=== PATIENT | male | born 1960 | race African-American/Black ===

== ENCOUNTER 2017-09-22 11:10 | Inpatient (IN) | payer OTHER ==
[~2017-09-22] VITALS: Ht 185.4 cm; Wt 98.9 kg
--- NOTE | ~2017-09-22 | EKG ---
[address] [place] [address] ELECTROCARDIOGRAM REPORT Name: AXEL NEVILLE Room #: 358-P ADM IN M.R.#: [id number] Admission: 09/22/17 Attend Phys: Tristen Santos MD Discharge: Date of : 58 Report #: [id number] THIS REPORT FOR: //name// [facility] ED Test Date: 2017-09-22 Test Time: 11:33:30 Pat Name: AXEL NEVILLE Department: Room: 358 Gender: M Web Mobile Designer: KEN : 1960 Requested By: Juan Miguel Parks Order Number: [id number] MD: Rao Berkowitz Measurements Intervals [place] Rate: 122 P: [place]: QRS: 24 QRSD: 92 T: 48 QT: 328 QTc: 468 Interpretive Statements Sinus tachycardia Otherwise no significant abnormality No previous ECG available for comparison Electronically Signed On 09-22-2017 16:02:58 MANAGER OF DIGITAL by Rao Berkowitz [email or web address] <ELECTRONICALLY SIGNED> By: Rao Berkowitz MD, [facility] 09/22/17 1602 1133 1133 Rao Berkowitz MD, FACC /EPI
--- NOTE | ~2017-09-22 | EXE ---
[facility] [address] [place] [address] STRESS ECHOCARDIOGRAM Name: AXEL NEVILLE Room #: 358-P [facility] IN ..#: [id number] Admission: 09/22/17 Attend Phys: Tristen Santos MD Discharge: Date of : 58 Date of Service: 09/23/17 1108 Report #: [id number] THIS REPORT FOR: //name// APPROVED REPORT Exam: Stress Echocardiogram Indication: HTN, MILLS, elevated troponin Patient Location: Echo lab Stress Nurse: Carlie Casey RN Room #: 358 Status: routine Ht: 6 ft 0 in HR: 112 bpm BP: 151/90 mmHg Rhythm: NSR Medical History Allergies: No known drug allergies Procedure The patient underwent an Exercise Stress Test using the Alf Protocol. Blood pressure, heart rate, and EKG were monitored. An Echocardiogram was performed by hazardous waste technician in four stages in quad fashion. At peak stress, four selected images were obtained and placed side by side with resting images for comparison. Stress Test Details Stress Test: Exercise stress testing was performed using a Alf protocol. HR Resting HR: 112 bpm Max Heart Rate (APMHR): 162 bpm Max HR Achieved: 155 bpm Target HR (85% APMHR): 137 bpm % of APMHR: 95 Recovery HR: 115 bpm HR response to stress: Tachycardic at rest/Normal HR response to stress BP Resting BP: 151/90 mmHg Max BP: 220/110 mmHg Recovery BP: 186/90 mmHg ECG [facility] [address] [place] [address] STRESS ECHOCARDIOGRAM Name: AXEL NEVILLE Room #: 358-P [facility] IN .R.#: [id number] Admission: 09/22/17 Attend Phys: Tristen Santso MD Discharge: Date of : 58 Date of Service: 09/23/17 1108 Report #: [id number] Clinical Reason for Termination: Fatigue Exercise duration: 5 min 17 sec Highest Stage Achieved: Stage 2: 2.5 mph at 12% grade. Exercise capacity: 7.20 METs Patient had difficulty walking treadmill due to leg arthritis. Pre-Stress Echo The resting Echocardiogram showed low normal left ventricular contractility with an estimated Ejection Fraction of about 50%. Left ventricular hypertrophy noted. No significant valvular abnormalities noted. Post-Stress Echo The stress Echocardiogram showed normal left ventricular contractility with an estimated Ejection Fraction of about 60%. Conclusion Clinical Response: Non-ischemic Exercise Capacity: Average Stress ECG Response: Non-ischemic Stress Echo Images: Non-ischemic <ELECTRONICALLY SIGNED> By: Keith Rangel MD, FACC 09/23/17 1108 1108 1108 Keith Rangel MD, FACC /INF
--- NOTE | ~2017-09-22 | EKG ---
[address] [address] ELECTROCARDIOGRAM REPORT Name: AXEL NEVILLE Room #: 358-P ADM IN M.R.#: [id number] Admission: 09/22/17 Attend Phys: Trisetn Santos MD Discharge: Date of : 58 Report #: [id number] THIS REPORT FOR: //name// [facility] Test Date: 2017-09-23 Test Time: 07:41:39 Pat Name: AXEL NEVILLE Department: Room: 358 P Gender: M Retail Client Manager: JAIME : 1960 Requested By: Carolee Lowery Order Number: [id number] MD: Rao Berkowitz Measurements Intervals [place] Rate: 111 P: 41 NJ: 139 QRS: 15 QRSD: 87 T: 42 QT: 336 QTc: 457 Interpretive Statements Sinus tachycardia Otherwise no significant abnormality Compared to ECG 09/22/2017 11:33:30 No significant changes Electronically Signed On 09-23-2017 8:35:36 AGRONOMY PROFESSOR by Rao Berkowitz [email or web address] <ELECTRONICALLY SIGNED> By: Rao Berkowitz MD, [facility] 09/23/17 0835 0741 0 Rao Berkowitz MD, FACC /EPI
[2017-09-22 11:11] VITALS: BP 170/102
[2017-09-22 12:22] LABS: HEMATOCRIT 41.5 % (42.0-52.0); HEMOGLOBIN 14.2 gm/dL (14.0-18.0); MCH 30.1 pg (26.0-34.0); MCHC 34.2 g/dL (28.0-37.0); MCV 87.9 fL (80.0-100.0); PLATELET COUNT 244 thou/uL (150-400); RBC 4.73 mil/uL (4.50-6.00); RDW 14.1 % (10.5-14.5); WBC 5.7 thou/uL (4.0-11.0)
[2017-09-22 12:32] LABS: CALCIUM 8.8 mg/dL (8.5-10.1); CREATININE 1.6 mg/dL (0.7-1.3); POTASSIUM 3.6 mmol/L (3.5-5.1)
[2017-09-22 12:35] LABS: APTT 29.4 Seconds (24.5-32.8); INR 1.1; PROTIME 10.9 Seconds (9.3-11.4)
[2017-09-22 12:46] LABS: ALBUMIN 3.6 g/dL (3.4-5.0); TOTAL BILIRUBIN 0.3 mg/dL (<0.1-1.0); TOTAL PROTEIN 7.9 g/dL (6.4-8.2); TROPONIN-I 0.43 ng/mL (<0.06)
[2017-09-22 12:49] LABS: ABSOLUTE NEUTROPHILS 3.6 thou/uL (1.4-8.2); PLATELET ESTIMATE NORMAL
[2017-09-22 13:21] VITALS: BP 156/101
[2017-09-22 14:22] VITALS: BP 174/102
[2017-09-22 15:17] LABS: AMP/METHAMP Negative (Negative); BARBITURATES Negative (Negative); BENZODIAZEPINES Negative (Negative); COCAINE Negative (Negative); METHADONE Negative (Negative); OPIATES Negative (Negative); PCP Negative (Negative)
[2017-09-22 16:40] VITALS: BP 184/112
[2017-09-22 19:05] VITALS: BP 176/101
[2017-09-22 23:45] VITALS: BP 155/93
[2017-09-23 01:31] LABS: HEMATOCRIT 41.2 % (42.0-52.0); HEMOGLOBIN 13.9 gm/dL (14.0-18.0); MCH 29.9 pg (26.0-34.0); MCHC 33.6 g/dL (28.0-37.0); MCV 88.8 fL (80.0-100.0); RBC 4.64 mil/uL (4.50-6.00); RDW 13.9 % (10.5-14.5)
[2017-09-23 03:03] LABS: CALCIUM 8.4 mg/dL (8.5-10.1); CREATININE 1.2 mg/dL (0.7-1.3); POTASSIUM 3.8 mmol/L (3.5-5.1)
[2017-09-23 03:05] LABS: TROPONIN-I 0.6 ng/mL (<0.06)
[2017-09-23 04:30] VITALS: BP 164/97
[2017-09-23 07:32] VITALS: BP 151/90
[2017-09-23 11:13] VITALS: BP 132/94
[2017-09-23] MEDS ORDERED: NORVASC10 MG PO (12:21)
[2017-09-23] MEDS ORDERED: AVAPRO300 MG PO (12:22)
[2017-09-23] MEDS ORDERED: ASPIR 8181 MG PO (12:22)
[2017-09-23 12:33] VITALS: BP 132/94
[2017-11-09] MEDS ORDERED: LOSARTAN-HCTZ1 EAC3 PO (08:55)
[2017-11-09] MEDS ORDERED: MOBIC15 MG PO (08:56)
[2017-11-09] MEDS ORDERED: BAYER CHEWABLE81 MG PO (08:57)
[2017-11-09] MEDS ORDERED: AMLODIPINE BESY10 MG PO (09:47)
== END 2017-09-23 12:54 | disposition home or self-care (01) | DRG 308 ==
LOC: ER 11:10 → EROBS 13:00 → 3W 13:00 → ENTRNSPT 09-23 12:46 → EDTRNSPTSTS 09-23 12:51 → 3W 09-23 12:54
PROVIDERS: Emergency Medicine; Hospitalist
DX: R00.0 Tachycardia, unspecified (principal); N17.0 Acute kidney failure with tubular necrosis; M19.90 Unspecified osteoarthritis, unspecified site; F17.210 Nicotine dependence, cigarettes, uncomplicated; N18.9 Chronic kidney disease, unspecified; E05.90 Thyrotoxicosis, unspecified without thyrotoxic crisis or storm; Z60.2 Problems related to living alone; I12.9 Hypertensive chronic kidney disease with stage 1 through stage 4 chronic kidney disease, or unspecified chronic kidney disease; Z79.899 Other long term (current) drug therapy; Z79.82 Long term (current) use of aspirin
CPT/HCPCS: 10779

== ENCOUNTER → 2017-10-11 | Outpatient (CLI) | payer OTHER ==
[~2017-10-11] MED LIST: ALEVE220 MG PO; AMLODIPINE BESY10 MG PO; ASPIR 8181 MG PO; ASPIRIN325 PO; AVAPRO300 MG PO; BAYER CHEWABLE81 MG PO; IBUPROFEN 400400 M2 PO; LOSARTAN-HCTZ1 EAC3 PO; MOBIC15 MG PO; NORCO 5-325 TA1 EACH PO; NORVASC10 MG PO; ZANAFLEX2 M1 PO
== END ==
LOC: RAD 09:52
DX: M16.11 Unilateral primary osteoarthritis, right hip (principal); G89.29 Other chronic pain; M25.561 Pain in right knee

== ENCOUNTER 2017-11-30 05:25 | Inpatient (IN) | payer OTHER ==
[2017-11-16 14:10] LABS: URINE BILIRUBIN NEGATIVE (Negative); URINE BLOOD TRACE (Negative); URINE CLARITY CLEAR; URINE COLOR YELLOW; URINE GLUCOSE-RANDOM* NEGATIVE (Negative); URINE KETONES TRACE (Negative); URINE LEUKOCYTES-REFLEX NEGATIVE (Negative); URINE NITRITE-REFLEX NEGATIVE (Negative); URINE PROTEIN (DIPSTICK) NEGATIVE (Negative); URINE SPECIFIC GRAVITY 1.025 (1.005-1.035); URINE UROBILINOGEN 0.2 E.U./dl (0.2-1.0)
[2017-11-16 14:11] LABS: HEMATOCRIT 41.9 % (42.0-52.0); MCH 29.1 pg (26.0-34.0); MCHC 33.3 g/dL (28.0-37.0); MCV 87.2 fL (80.0-100.0); RBC 4.81 mil/uL (4.50-6.00); RDW 13.4 % (10.5-14.5); WBC 10.1 thou/uL (4.0-11.0)
[2017-11-16 14:24] LABS: PROTIME 10.7 Seconds (9.3-11.4)
[2017-11-16 14:27] LABS: ALBUMIN 3.8 g/dL (3.4-5.0); CALCIUM 9.5 mg/dL (8.5-10.1); CREATININE 1.4 mg/dL (0.7-1.3); POTASSIUM 4.1 mmol/L (3.5-5.1)
[~2017-11-30] VITALS: Ht 185.4 cm; Wt 112.5 kg
--- NOTE | ~2017-11-30 | O ---
[facility] [place] [address] OPERATIVE REPORT Name: AXEL NEVILLE Room #: 407-P [facility] IN M.R.#: [id number] Admission: 11/30/17 Attend Phys: Issa Silva MD Discharge: Date of : 58 Report #: [id number] THIS REPORT FOR: //name// CC: [facility] physician/PCP Issa Silva DATE OF SERVICE: 11/30/2017 PREOPERATIVE DIAGNOSIS: Right hip osteoarthritis. POSTOPERATIVE DIAGNOSIS: Right hip osteoarthritis. PROCEDURE: Right total hip arthroplasty. SURGEON: Issa Silva MD. MUSIC LEADER: Jazzy De Los Santos PA-C. ANESTHESIA: General endotracheal. IMPLANTS: [employer] size 16 high offset Synergy press fit stem, a size 40+4 Oxinium head and a size 60 R3 acetabular cup with one acetabular screw. ESTIMATED BLOOD LOSS: 50 mL. INDICATIONS FOR ASSISTANCE: Throughout the case, extensive retraction of the hip including dislocation and reduction of the hip was required. This was afforded to me by my design assistant. CONDITION UPON LEAVING OPERATING ROOM: Stable. INDICATION FOR PROCEDURE: The patient is a 57-year-old gentleman with severe right hip osteoarthritis. He had failed conservative treatment for this, and after discussion with him, he elected for right total hip arthroplasty. DESCRIPTION OF PROCEDURE: Risks, benefits, alternatives, complications were discussed in detail with the patient including but not limited to risk of anesthesia, risk of damage to nerves, arteries, blood vessels, risk for infection, bleeding, risk for continued hip pain and need for reoperation, leg length discrepancy and instability. Informed consent was obtained from the patient. The right hip was appropriately marked in the preoperative holding area. IV Ancef was given for preoperative antibiotics. He was brought to the operating room and placed in supine position on operating room table. General endotracheal anesthesia was induced without complication. He was then placed in the left lateral decubitus position with the right hip uppermost. Right hip and lower extremity were prepped and draped in normal sterile fashion. Timeout was [address] [address] OPERATIVE REPORT Name: JAMINAXEL Ivan Room #: 407-P [facility] IN ..#: [id number] Admission: 11/30/17 Attend Phys: Issa Silva MD Discharge: Date of : 58 Report #: [id number] performed properly identifying the patient and procedure as well as the instrumentation and implants. All in the operating room were in agreement. A standard posterior approach was then made with 10 blade through the skin. Dissection was taken down to the fascia with Bovie cautery. Fascia was cleaned with a Jauregui elevator. Fresh 10 blade was used to make a fascial incision proximally and distally with curved Orr scissor. Charnley retractor was placed. Trochanteric bursa was taken down. The piriformis tendon was identified, tagged and taken down with Bovie. Short external rotators were also taken down with Bovie cautery. Capsulotomy was made and capsule ends were tagged for later repair. Hip was dislocated. There was extensive arthritic change of the femoral head. Femoral neck cut was made 1 cm proximal to lesser trochanter based on preoperative templating, and the femoral head was removed. Deep acetabular retractors were placed, and the labrum was removed sharply. Pulvinar was removed with Bovie cautery. The acetabulum was then sequentially reamed up to a size 60, at which point, there was excellent bleeding cancellous bone. This was trialed with a size 59 head, which had a good fit. A final size 60 R3 acetabular cup was then seated in the acetabulum. One acetabular screw was placed for backup fixation. He had circumferential osteophytes, which were then removed at this point with a curved osteotome. The polyethylene liner for a 40 mm head was placed. Attention was turned to the femur. This was reamed and broached up to a size 16, at which point, the size 16 broach was stable. This was trialed with a high offset neck and a 40+0 head. Hip was reduced, taken through range of motion, found to be stable, found to have near equal leg length just slightly short on the right compared to left. It was felt this could be made up for in the final implant. Hip was dislocated, broach was removed. The final size 16 high offset Synergy press fit stem was placed. This was trialed with a 40+4 head. Hip was reduced, taken through range of motion, found to be stable, found to have equal leg lengths. After this, the hip was dislocated one last time, and the trial head was removed, and final size 40+4 Oxinium head was placed. Hip was reduced, taken through range of motion, found to be stable, found to have equal leg lengths. The wound was thoroughly irrigated with normal saline. Periarticular injection consisting of morphine, ropivacaine, epinephrine and Toradol was placed on the hip soft tissues. A gram of vancomycin was placed deep in the hip joint. The capsule and piriformis were repaired with 0 FiberWire. The fascia was closed with 0 Vicryl, skin was closed with 2-0 Vicryl, 3-0 Monocryl. Dermabond and GILA dressing applied. The patient tolerated this procedure well and went to recovery room under care of Anesthesia postoperatively. By: 1450 [id number] Issa Silva MD /katie
[~2017-11-30 05:25] MED LIST changes: -ALEVE220 MG PO; -ASPIRIN325 PO; -IBUPROFEN 400400 M2 PO; -NORCO 5-325 TA1 EACH PO; -ZANAFLEX2 M1 PO
[2017-11-30 13:22] VITALS: BP 127/76
[2017-11-30 16:13] VITALS: BP 132/81
[2017-11-30 16:43] VITALS: BP 123/76
[2017-11-30 17:11] VITALS: BP 129/78
[2017-11-30 18:11] VITALS: BP 147/85
[2017-11-30 19:15] VITALS: BP 118/85
[2017-12-01] VITALS: BP 119/82
[2017-12-01 04:00] VITALS: BP 115/77
[2017-12-01 06:44] LABS: HEMOGLOBIN 11.4 gm/dL (14.0-18.0); MCHC 33.5 g/dL (28.0-37.0); RDW 12.7 % (10.5-14.5)
[2017-12-01 06:46] LABS: HEMATOCRIT 34.1 % (42.0-52.0); MCH 29.5 pg (26.0-34.0); RBC 3.88 mil/uL (4.50-6.00)
[2017-12-01 07:44] VITALS: BP 152/92
[2017-12-01] MEDS ORDERED: ASPIRIN325 PO (10:24)
[2017-12-01 15:05] VITALS: BP 152/92
== END 2017-12-01 15:25 | disposition home or self-care (01) | DRG 470 ==
LOC: PRE 05:25 → 4N 05:32 → TBA 05:32 → PRE 09:00 → 4N 15:55 → ENTRNSPT 12-01 15:18 → EDTRNSPTSTS 12-01 15:23 → 4N 12-01 15:25
PROVIDERS: Orthopaedic Surgery
PROC: 0SR906A Replacement of Right Hip Joint with Oxidized Zirconium on Polyethylene Synthetic Substitute, Uncemented, Open Approach (ICD-10-PCS; principal; 2017-11-30)
DX: M16.11 Unilateral primary osteoarthritis, right hip (principal); Z79.82 Long term (current) use of aspirin; Z79.899 Other long term (current) drug therapy
CPT/HCPCS: 10790; 50010; 50101; 50382; 50414; 51771; 53000; 53078; 53368; 54118; 56524; 56527; 56528; 56530; 57095; 62110; 62900; 70005

== ENCOUNTER 2018-05-18 09:06 | Emergency (ER) | payer OTHER ==
[~2018-05-18] VITALS: Ht 185.4 cm; Wt 98.9 kg
[~2018-05-18 09:06] MED LIST changes: +ASPIRIN325 PO
[2018-05-18] MEDS ORDERED: ALEVE220 MG PO (10:14)
[2018-05-18] MEDS ORDERED: ZANAFLEX2 M1 PO (10:14)
== END 2018-05-18 10:54 | disposition home or self-care (01) ==
LOC: ER 09:06
DX: M79.10 Myalgia, unspecified site (principal); M54.5 Low back pain; I10 Essential (primary) hypertension; F17.210 Nicotine dependence, cigarettes, uncomplicated; Z96.641 Presence of right artificial hip joint

== ENCOUNTER → 2018-05-19 | Outpatient (CLI) | payer OTHER ==
[~2018-05-19] MED LIST changes: +ALEVE220 MG PO; +IBUPROFEN 400400 M2 PO; +NORCO 5-325 TA1 EACH PO; +ZANAFLEX2 M1 PO
== END ==
LOC: RAD 12:08
DX: S82.301D Unspecified fracture of lower end of right tibia, subsequent encounter for closed fracture with routine healing (principal); X58.XXXD Exposure to other specified factors, subsequent encounter

== ENCOUNTER 2018-05-20 08:10 | Emergency (ER) | payer OTHER ==
[~2018-05-20] VITALS: Ht 185.4 cm; Wt 98.9 kg
[~2018-05-20 08:10] MED LIST changes: -IBUPROFEN 400400 M2 PO; -NORCO 5-325 TA1 EACH PO
[2018-05-20] MEDS ORDERED: IBUPROFEN 400400 M2 PO (09:02)
[2018-05-20] MEDS ORDERED: NORCO 5-325 TA1 EACH PO (09:02)
== END 2018-05-20 09:34 | disposition home or self-care (01) ==
LOC: ER 08:10
DX: M79.661 Pain in right lower leg (principal); I10 Essential (primary) hypertension; F17.210 Nicotine dependence, cigarettes, uncomplicated; Z96.649 Presence of unspecified artificial hip joint

== ENCOUNTER → 2018-06-01 | Outpatient (CLI) | payer OTHER ==
[~2018-06-01] MED LIST changes: +IBUPROFEN 400400 M2 PO; +NORCO 5-325 TA1 EACH PO
== END ==
LOC: MRI 09:45
DX: M22.41 Chondromalacia patellae, right knee (principal); M25.461 Effusion, right knee